=== PATIENT | male | born 1985 | race Caucasian/White ===

== ENCOUNTER 2021-07-25 12:59 | Outpatient (REF) | payer OTHER, SELFPAY ==
[2021-07-25 14:04] LABS: COVID-19 Test Negative (Negative)
== END 2021-07-25 13:00 | disposition home or self-care (01) ==
LOC: HO.LAB 12:59
PROVIDERS: Visit Provider Internal Medicine
DX: Z20.822 Contact with and (suspected) exposure to COVID-19 (principal)
CPT/HCPCS: 36415; 87635; C9803

== ENCOUNTER 2021-08-14 12:01 | Outpatient (REF) | payer OTHER, SELFPAY ==
[2021-08-14 14:46] LABS: COVID-19 Test Negative (Negative)
== END 2021-08-14 12:02 | disposition home or self-care (01) ==
LOC: HO.LAB 12:01
PROVIDERS: Visit Provider Internal Medicine
DX: Z20.822 Contact with and (suspected) exposure to COVID-19 (principal)
CPT/HCPCS: 36415; 87635; C9803

== ENCOUNTER 2021-10-09 10:35 | Outpatient (REF) | payer OTHER, SELFPAY ==
[2021-10-09 11:37] LABS: MANUAL DIFF FLAG NO
[2021-10-09 11:53] LABS: Basophils Percent Auto 0.6 % (0-2); Eosinophils Absolute Auto 0.2 X10*3/uL (0.0-0.4); Eosinophils Percent Auto 2.9 % (0-4); Imm Gran Abs Auto 0.01 X10*3/uL (0.00-0.03); Imm Gran Pct Auto 0.2 % (0.0-0.4); Lymphocytes Absolute Auto 2.1 X10*3/uL (1.2-4.9); Lymphocytes Percent Auto 40.7 % (20-40); Mean Corpuscular HGB Conc 33.3 g/dl (31.0-36.0); Mean Corpuscular Hemoglobin 30.1 pg (27.0-33.0); Mean Corpuscular Volume 90.4 fL (80.0-98.0); Mean Platelet Volume 10.5 fL (9.4-12.4); Monocytes Absolute Auto 0.4 X10*3/uL (0.1-1.2); Monocytes Percent Auto 8.5 % (2-11); Neutrophils Absolute Auto 2.5 x10*3/uL (2.0-8.3); Neutrophils Percent Auto 47.1 % (45-73); Platelet Count 251 X10*3/uL (160-400); Red Blood Count 4.98 X10*6/uL (4.60-5.80); Red Cell Distribution Width 11.9 % (11.0-16.0); White Blood Count 5.2 X10*3/uL (4.8-10.8)
[2021-10-09 12:19] LABS: Alanine Aminotransferase 16 U/L (0-40); Albumin Level 4.9 g/dL (3.5-5.0); Alkaline Phosphatase 50 U/L (39-117); Anion Gap 12 (12-20); Aspartate Amino Transferase 18 U/L (5-37); Bilirubin Total 1.1 mg/dL (0.0-1.0); Blood Urea Nitrogen 14 mg/dL (9-16); Carbon Dioxide 29 mmol/L (22-29); Chloride 102 mmol/L (96-108); Cholesterol 217 mg/dL; Estimated Glomerular Filt Rate > 60; Glucose Fasting 89 mg/dL (60-99); HDL Cholesterol 51 mg/dL; LDL Cholesterol Calculated 143 mg/dl; Potassium 4.2 mmol/L (3.3-5.1); Sodium 139 mmol/L (135-145); Triglycerides 117 mg/dL
== END 2021-10-09 10:36 | disposition home or self-care (01) ==
LOC: HO.HMGCLDS 10:35
PROVIDERS: Visit Provider Nurse Practitioner Family
DX: E78.00 Pure hypercholesterolemia, unspecified (principal); I10 Essential (primary) hypertension
CPT/HCPCS: 36415; 80053; 80061; 85025

== ENCOUNTER 2023-10-10 09:27 | Outpatient (AMB) | payer BC, SELFPAY ==
--- NOTE | 2023-10-10 09:38 | A.OFFPC_ITS ---
Vital Signs 10/10/23 09:40 Height 5 ft 10 in Weight 163 lb 2 oz BMI 23.4 BP 100/64 Blood Pressure Location Lt brachial Position Sitting Pulse 74 Pulse Source Pulse Oximeter Pulse Oximetry (%) 97 Oxygen Delivery Method Room Air Intake Visit Reasons: Annual PE Intake Note: Patient is here today for a physical. 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 [facility] Surgical History [place] teeth extracted Family History Mother No problems noted. Father No problems noted. Social History Housing: House Alcohol intake: current Alcohol intake frequency: a few times a week Patient Tobacco Use Status: Never used Tobacco e-Cigarette/Vaping Use: Never Used Second Hand Smoke Exposure: No service: No Current occupational status: employed Current occupational exposures/hazards: No Cognitive needs: No Hearing needs: No Vision needs: No Questionnaire PHQ-9 Over the last 2 weeks, how often have you been bothered by any of the following problems? 1. Little interest or pleasure in doing things: not at all 2. Feeling down, depressed, or hopeless: not at all 3. Trouble falling or staying asleep, or sleeping too much: not at all 4. Feeling tired or having little energy: not at all 5. Poor appetite or overeating: not at all 6. Feeling bad about yourself - or that you are a failure or have let yourself or your family down: not at all 7. Trouble concentrating on things, such as reading the newspaper or watching television: not at all 8. Moving or speaking so slowly that other people could have noticed. Or the opposite - being so fidgety or restless that you have been moving around a lot more than usual: not at all 9. Thoughts that you would be better off or of hurting yourself in some way: not at all Total score: 0 Depression Screening Interpretation: Negative Depression Screening Done: Yes Source: Developed by Drs. Jose Martin Bejarano, Luh Decker, Jose Canela and colleagues, with an educational will from [employer]. Thrive Questionnaire Date Thrive assessed: 10/10/23 I am a: Patient What is your living situation today?: I have a steady place to live Within the past 12 months, did the food you bought not last and you didn't have the money to get more?: Never true Within the past 12 months, did you worry whether your food would run out before you got money to buy more?: Never true Do you have trouble paying for medicines?: No Do you have trouble getting transportation to medical appointments?: No Do you have trouble paying your heating and electricity bill?: No Do you have trouble taking care of your child, family member or friend?: No Do you have trouble with day-to-day activities such as bathing, preparing meals, shopping, managing finances, etc.?: No Are you currently unemployed and looking for a job?: No Are you interested in more education?: No Currently or been in a relationship where the following occur: no concerns reported THRIVE Score: 0 AUDIT C Alcohol Use Questionnaire (AUDIT-C) 1. How often do you have a drink containing alcohol?: 2-3 times a week 2. How many drinks containing alcohol do you have on a typical day when you are drinking?: 1 or 2 Total Score: 3 SUAD-7 AMB Questionnaire SUAD-7 Date SUAD - 7 assessed: 10/10/23 Feeling nervous, anxious, or on edge: 0 = Not at all Not being able to stop or control worryin = Not at all Worrying too much about different things: 0 = Not at all Trouble relaxin = Not at all Being so restless that it is hard to sit still: 0 = Not at all Becoming easily annoyed or irritable: 0 = Not at all Feeling afraid as if something awful might happen: 0 = Not at all Total SUAD-7 score (0-4 normal; 5-9 mild; 10-14 moderate; 15-21 severe): 0 Source: Developed by Drs. Jose Martin Bejarano, Luh Decker, Jose Canela and colleagues, with an educational will from [employer]. Physical exam (Primary Care) Vital Signs: Last Vital Signs Pulse 74 10/10/23 09:40 BP 100/64 10/10/23 09:40 Pulse Ox 97 10/10/23 09:40 Oxygen Delivery Method Room Air 10/10/23 09:40 BMI result Body Mass Index 23.4 Tobacco/Smoking Status: Tobacco use Status Tobacco use date assessed 10/10/23 10/10/23 09:44 Patient Tobacco Use Status Never used Tobacco 10/10/23 09:44 e-Cigarette/Vaping Use Never Used 10/10/23 09:44 PHQ-9: PHQ-9 Score PHQ-9: Total score 0 10/10/23 09:44 Depression Screening Interpretation: Negative Thrive Assessment: Date of Thrive Assessment Date Thrive assessed 10/10/23 10/10/23 09:44 Currently or been in a relationship where the following occur: no concerns reported Const General: cooperative and healthy appearing Nutritional Appearance: well nourished Orientation/consciousness: patient oriented x3 Limitations: no limitations HENMT Head: Yes normal to inspection Eyes General: appearance normal, both eyes and all related structures Neck Neck: Yes normal visual inspection Chest Chest palpation & inspection: normal palpation of entire chest wall Resp Effort & Inspection: normal respiratory effort Neuro General: patient oriented x3 Assessment and Plan Assessment & Plan (1) Physical exam: Onset Date: ~10/03/21 Code(s): Z00.00 - Encounter for general adult medical examination without abnormal findings Plan: Blood work has been ordered. patient was advised to get fasting blood work. Orders: Orders Complete Blood Count no Diff 10/10/23 Z00.00 - Encounter for general adult medical examination without abnormal findings Thyroid Stimulating Hormone 10/10/23 Z00.00 - Encounter for general adult medical examination without abnormal findings Erythrocyte Sedimentation Rate 10/10/23 Z00.00 - Encounter for general adult medical examination without abnormal findings Basic Metabolic Panel 10/10/23 Z00.00 - Encounter for general adult medical examination without abnormal findings Liver Panel 10/10/23 Z00.00 - Encounter for general adult medical examination without abnormal findings Lipid Panel 10/10/23 Z00.00 - Encounter for general adult medical examination without abnormal findings Coding Level of Care Code Est Pt Prev Care 18-39y(43926) Diagnoses Physical exam Z00.00
[2023-10-10 09:40] VITALS: BP 100/64; PULSE 74; O2SAT 97; BMI 23.4
== END 2023-10-10 10:15 | disposition home or self-care (01) ==
PROVIDERS: PCP Internal Medicine; Visit Provider Internal Medicine
DX: Z00.00 Encounter for general adult medical examination without abnormal findings (principal)
CPT/HCPCS: 99395

== ENCOUNTER 2024-02-12 09:29 | Outpatient (AMB) | payer BC, SELFPAY ==
--- NOTE | 2024-02-12 09:34 | A.OFFPC_ITS ---
Vital Signs 02/12/24 09:36 Height 5 ft 10 in Weight 158 lb 8 oz BMI 22.7 BP 100/64 Blood Pressure Location Lt brachial Position Sitting Pulse 67 Pulse Source Pulse Oximeter Pulse Oximetry (%) 99 Oxygen Delivery Method Room Air Intake Visit Reasons: Eczema/ Dermatology referral Intake Note: Patient is here to follow up on Eczema and referral to Dermatology. 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 Patient is requesting a referral to see a practice administrator. He has a few lesions on the back that he would like biopsied. Patient is a little apprehensive as his mother was diagnosed with skin cancer. [facility] Surgical History [place] teeth extracted Family History Mother No problems noted. Father No problems noted. Social History Housing: House Alcohol intake: current Alcohol intake frequency: a few times a week Patient Tobacco Use Status: Never used Tobacco e-Cigarette/Vaping Use: Never Used Second Hand Smoke Exposure: No service: No Current occupational status: employed Current occupational exposures/hazards: No Cognitive needs: No Hearing needs: No Vision needs: No Questionnaire Thrive Questionnaire Date Thrive assessed: 10/10/23 SUAD-7 AMB Questionnaire SUAD-7 Date SUAD - 7 assessed: 10/10/23 Source: Developed by Drs. Jose Martin Bejarano, Luh Decker, Jose Canela and colleagues, with an educational will from [employer]. Physical exam (Primary Care) Vital Signs: Last Vital Signs Pulse 67 02/12/24 09:36 BP 100/64 02/12/24 09:36 Pulse Ox 99 02/12/24 09:36 Oxygen Delivery Method Room Air 02/12/24 09:36 BMI result Body Mass Index 22.7 Tobacco/Smoking Status: Tobacco use Status Tobacco use date assessed 02/12/24 02/12/24 09:40 Patient Tobacco Use Status Never used Tobacco 02/12/24 09:40 e-Cigarette/Vaping Use Never Used 02/12/24 09:40 Thrive Assessment: Date of Thrive Assessment Date Thrive assessed 10/10/23 02/12/24 09:40 Skin Lesions: lesion noted (Back: Tattoo. Within the tattoo there is nevi.) Assessment and Plan Assessment & Plan (1) Tinea corporis: Code(s): B35.4 - Tinea corporis Plan: Dermatology consult requested as per patient's request Orders: Referrals Dermatology Referral B35.4 - Tinea corporis Coding Level of Care Code Est Pt Level 3 (16953) Diagnoses Tinea corporis B35.4
[2024-02-12 09:36] VITALS: BP 100/64; PULSE 67; O2SAT 99; BMI 22.7
== END 2024-02-12 10:39 | disposition home or self-care (01) ==
PROVIDERS: PCP Internal Medicine; Visit Provider Internal Medicine
DX: B35.4 Tinea corporis (principal)
CPT/HCPCS: 99213

== ENCOUNTER 2024-12-11 13:40 | Outpatient (AMB) | payer BC, SELFPAY ==
[2024-12-11 14:05] VITALS: BP 100/56; PULSE 75; RESP 18; TEMP 36.4; O2SAT 96; BMI 23.6
--- NOTE | 2024-12-11 14:05 | MHC.PC.OV ---
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 Father No problems noted. Social History Housing: House Alcohol intake: current Alcohol intake frequency: a few times a week Patient Tobacco Use Status: Never used Tobacco e-Cigarette/Vaping Use: Never Used Second Hand Smoke Exposure: No service: No Current occupational status: employed Current occupational exposures/hazards: No Cognitive needs: No Hearing needs: No Vision needs: No Questionnaire PHQ-9 Over the last 2 weeks, how often have you been bothered by any of the following problems? 1. Little interest or pleasure in doing things: not at all 2. Feeling down, depressed, or hopeless: not at all 3. Trouble falling or staying asleep, or sleeping too much: not at all 4. Feeling tired or having little energy: not at all 5. Poor appetite or overeating: not at all 6. Feeling bad about yourself - or that you are a failure or have let yourself or your family down: not at all 7. Trouble concentrating on things, such as reading the newspaper or watching television: not at all 8. Moving or speaking so slowly that other people could have noticed. Or the opposite - being so fidgety or restless that you have been moving around a lot more than usual: not at all 9. Thoughts that you would be better off or of hurting yourself in some way: not at all Total score: 0 Depression Screening Interpretation: Negative Depression Screening Done: Yes 71255 - PHQ-9 Billing: Yes Source: Developed by Drs. Jose Martin Bejarano, Luh Decker, Jose Canela and colleagues, with an educational will from [employer]. Thrive Questionnaire Date Thrive assessed: 12/11/24 I am a: Patient What is your living situation today?: I have a steady place to live Within the past 12 months, did the food you bought not last and you didn't have the money to get more?: Never true Within the past 12 months, did you worry whether your food would run out before you got money to buy more?: Never true Do you have trouble paying for medicines?: No Do you have trouble getting transportation to medical appointments?: No Do you have trouble paying your heating and electricity bill?: No Do you have trouble taking care of your child, family member or friend?: No Do you have trouble with day-to-day activities such as bathing, preparing meals, shopping, managing finances, etc.?: No Are you currently unemployed and looking for a job?: No Are you interested in more education?: No Please select the resources that you would like help with: None Currently or been in a relationship where the following occur: No concerns reported THRIVE Score: 0 AUDIT C Alcohol Use Questionnaire (AUDIT-C) 1. How often do you have a drink containing alcohol?: 2-3 times a week 2. How many drinks containing alcohol do you have on a typical day when you are drinking?: 3 or 4 3. How often do you have six or more drinks on one occasion?: Monthly Total Score: 6 Score Reviewed/Action Taken: No SUAD-7 AMB Questionnaire SUAD-7 Date SUAD - 7 assessed: 12/11/24 Feeling nervous, anxious, or on edge: 0 = Not at all Not being able to stop or control worryin = Not at all Worrying too much about different things: 0 = Not at all Trouble relaxin = Not at all Being so restless that it is hard to sit still: 0 = Not at all Becoming easily annoyed or irritable: 0 = Not at all Feeling afraid as if something awful might happen: 0 = Not at all Total SUAD-7 score (0-4 normal; 5-9 mild; 10-14 moderate; 15-21 severe): 0 Source: Developed by Drs. Jose Martin Bejarano, Luh Decker, Jose Canela and colleagues, with an educational will from [employer]. SUAD-7 Assessment Billing SUAD-7 Assessment Tool: SUAD-7 Assessment 07043 Physical exam (Primary Care) Vital Signs: Last Vital Signs Temp 97.5 F 12/11/24 14:05 Pulse 75 12/11/24 14:05 Resp 18 12/11/24 14:05 BP 100/56 L 12/11/24 14:05 Pulse Ox 96 12/11/24 14:05 Care Plan Goal for BP management: <130/80 at Goal BMI result Body Mass Index 23.6 bmi normal Tobacco/Smoking Status: Tobacco use Status Tobacco use date assessed 12/11/24 12/11/24 14:11 Patient Tobacco Use Status Never used Tobacco 12/11/24 14:11 e-Cigarette/Vaping Use Never Used 12/11/24 14:11 PHQ-9: PHQ-9 Score PHQ-9: Total score 0 12/11/24 14:11 Depression Screening Interpretation: Negative Thrive Assessment: Date of Thrive Assessment Date Thrive assessed 12/11/24 12/11/24 14:11 Currently or been in a relationship where the following occur: No concerns reported Coding Level of Care Code Est Pt Level 4 (14316) Est Pt Prev Care 18-39y(52328) Diagnoses Annual physical exam Z00.00 Infertility male N46.9 Seasonal allergies J30.2 Additional Codes PHQ-9 - 34256 - PHQ-9 Billing: Yes ([id number]) SUAD-7 Assessment Billing - SUAD-7 Assessment Tool: SUAD-7 Assessment 04704 ([id number]) Assessment & Plan Assessment & Plan (1) Annual physical exam: Code(s): Z00.00 - Encounter for general adult medical examination without abnormal findings Category: Medical (2) Infertility male: Code(s): N46.9 - Male infertility, unspecified Category: Medical Plan: The patient is undergoing in vitro fertilization (IVF) following unsuccessful intrauterine insemination (IUI) fertility specialists. Prior bloodwork was normal, and ongoing fertility treatments will proceed as planned. (3) Seasonal allergies: Code(s): J30.2 - Other seasonal allergic rhinitis Category: Medical Plan: Manage with xgau-hik-fycltyi medications, such as Claritin and Flonase. The patient is advised to use these medications during allergy seasons and monitor for any changes in symptoms that may require further medical intervention. Plan Plan Patient was informed and verbally consented to the use of an ambient scribe for clinic note documentation during this visit. 1. Infertility The patient is undergoing in vitro fertilization (IVF) following unsuccessful intrauterine insemination (IUI) fertility specialists. Prior bloodwork was normal, and ongoing fertility treatments will proceed as planned. 2. Seasonal Allergic Rhinitis Manage with [id number] medications, such as Claritin and Flonase. The patient is advised to use these medications during allergy seasons and monitor for any changes in symptoms that may require further medical intervention. Discussion Notes During our discussion, I addressed the patient's concerns regarding infertility treatment progress. We acknowledged previous normal bloodwork and the current IVF process. Regarding seasonal allergies, I answered questions about the effective use of Claritin and Flonase for symptom management. I advised on monitoring any significant health changes and encouraged healthy lifestyle habits, including regular exercise and avoiding substances that could exacerbate allergies. The patient was informed about the importance of following up with their fertility clinic routinely, and I mentioned that further bloodwork may be conducted based on routine health checks and specific fertility requirements. Anticipatory guidance regarding possible follow-up requirements for issues related to routine health was also provided. Orders: Orders Complete Blood Count Auto Diff Today Z00.00 - Encounter for general adult medical examination without abnormal findings Comprehensive [place]. Panel Fast Today Z00.00 - Encounter for general adult medical examination without abnormal findings TSH reflex Free T4 Today Z00.00 - Encounter for general adult medical examination without abnormal findings Erythrocyte Sedimentation Rate Today Z00.00 - Encounter for general adult medical examination without abnormal findings Hemoglobin A1c Today Z00.00 - Encounter for general adult medical examination without abnormal findings C Reactive Protein Today Z00.00 - Encounter for general adult medical examination without abnormal findings Lipid Panel Today Z00.00 - Encounter for general adult medical examination without abnormal findings Liver Panel Today Z00.00 - Encounter for general adult medical examination without abnormal findings Magnesium Today Z00.00 - Encounter for general adult medical examination without abnormal findings Vitamin D 25-OH Total Today Z00.00 - Encounter for general adult medical examination without abnormal findings Vitamin B12 and Folate Today Z00.00 - Encounter for general adult medical examination without abnormal findings PSA,Total (Free>4and<10) Today Z00.00 - Encounter for general adult medical examination without abnormal findings Patient Instructions: Patient Instructions - Continue use of Claritin and Flonase for managing seasonal allergies as needed. - Engage in regular physical activity and maintain a healthy lifestyle. - Keep scheduled appointments with fertility specialists. - Notify if experiencing new symptoms like abnormal weight change or new/chronic health issues. - Follow-up in one year or sooner if issues arise. Scribe Plan - Not visible on output: History of Present Illness The patient is a 39-year-old male presenting for a physical examination. He has a history of infertility and is currently undergoing in vitro fertilization (IVF) procedures. He mentions having normal previous bloodwork results related to these treatments. Additionally, he experiences seasonal allergic rhinitis, for which he uses Claritin and Flonase as needed. The patient reports engaging in regular physical activity with no complaint of chest pain or shortness of breath. He has no history of substance use or smoking, and denies any depressive symptoms, abnormal weight changes, or significant changes in his daily health routines. Social History - and undergoing fertility treatments (IUI and IVF) with his . - Denies substance use and smoking. - Engages in regular physical activity, exercising four to five times per week. - Uses OTC medications for seasonal allergies. Review of Systems - Respiratory: Denies shortness of breath or chest pain. - Gastrointestinal: Reports normal bowel movements. - Musculoskeletal: Denies unusual swelling or pain, noting only normal post-exercise soreness. Physical Exam Appearance: Alert. Oriented X3. No acute distress. Head: Normal external exam. Normocephalic. Atraumatic. Eyes: Pupils are equal, round, and reactive to light. Extraocular movements intact. Conjunctiva and sclera normal. Eyelids normal. Ears: External auditory canal normal. Tympanic membranes normal. Throat: Pharynx normal. Uvula midline. Moist mucous membranes. Neck: Normal inspection. Neck supple. Full range of motion. No adenopathy. Thyroid Normal. No meningeal signs. No neck mass noted. Cardiovascular: Normal heart rate and rhythm. Heart sound normal. No murmurs noted. Pulses normal throughout. Respiratory: No respiratory distress. Painless inspiration. Breath sounds normal. No wheezes/rales/rhonchi noted. Chest nontender. No accessory muscle usage noted or decreased air movement noted. Abdomen: Soft and nontender. Bowel sounds normal in all 4 quadrants. No distention noted. No organomegaly noted. No visible injury noted. Back: No costovertebral angle tenderness. Full range of motion noted. Skin: Skin warm and dry. Normal skin color. Normal skin turgor. No rashes/lesions/lacerations noted. Extremities: No lower extremity edema. Extremities exhibit normal range of motion. Extremities nontender. Neuro: Oriented X 3. No motor deficit. No sensory deficit. Reflexes normal.
== END 2024-12-11 14:28 | disposition home or self-care (01) ==
LOC: HO.HMCH 13:41
PROVIDERS: PCP Internal Medicine; Visit Provider Physician Assistant Medical
DX: Z00.00 Encounter for general adult medical examination without abnormal findings (principal); N46.9 Male infertility, unspecified; J30.2 Other seasonal allergic rhinitis

== ENCOUNTER → 2024-12-11 13:40 | Outpatient (BNVA) | payer BC, SELFPAY | PROVIDERS: PCP Internal Medicine; Visit Provider Physician Assistant Medical | DX: Z00.00 Encounter for general adult medical examination without abnormal findings (principal); N46.9 Male infertility, unspecified; J30.2 Other seasonal allergic rhinitis | CPT/HCPCS: 96127 ==